=== PATIENT | male | born 1995 | race American Indian/Alaskan Native ===

== ENCOUNTER 2017-10-19 10:31 | Emergency (ER) | payer SELFPAY ==
--- NOTE | 2017-10-19 12:52 | XRay Report ---
ROUTINE CHEST, TWO VIEWS: HISTORY: Cough. The trachea, heart, mediastinal contour, lung huizar and bony thorax are unremarkable. IMPRESSION: Unremarkable chest x-ray.
[2017-10-19] MEDS ORDERED: DUONEB *Not for PRN Use IH ONE ×2 (16:03→16:41)
--- NOTE | 2017-10-19 16:33 | Emergency Department Report ---
- General Chief Complaint: Upper Respiratory Infection Stated Complaint: CHEST PAINS WHEN COUGHING Time Seen by Provider: 10/19/17 16:03 Source: patient Mode of arrival: Ambulatory Limitations: No Limitations - History of Present Illness Initial Comments: 22-year-old male past medical history smoker, asthma presents with complaint of 3-4 days of sore throat runny nose and persistent cough. Patient states that he has been wheezing persistently which is why he came to the ED. Has had coughing fits with slightly productive yellowish sputum. Patient is awake alert and oriented 3 no trismus and no drooling no dyspnea no audible wheezing. States he lives in a senior living with her have been several people with colds and flulike symptoms. Patient is awake alert and oriented 3 nontoxic appearing. Denies chest pain palpitations or shortness of breath at rest but does state he has been wheezing persistently. MD Complaint: cough, sore throat, rhinorrhea, nasal congestion Onset/Timin -: days(s) Severity: mild Consistency: constant Improves With: nothing Worsens With: nothing Associated Symptoms: cough Treatments Prior to Arrival: none - Related Data Previous Rx's Medication Instructions Recorded Last Taken Type Albuterol Sulfate [Ventolin Hfa] 1 gm IH Q4H PRN #1 hfa.aer.ad 10/19/17 Unknown Rx Azithromycin [Zithromax Z-DEBBIE] 250 mg PO QDAY #1 pack 10/19/17 Unknown Rx Benzonatate [Tessalon Perles] 100 mg PO Q8HR PRN #20 capsule 10/19/17 Unknown Rx Dextromethorphan/Benzocaine 1 each PO Q4H PRN #1 box 10/19/17 Unknown Rx [Cepacol Sorethroat-Cough Christal] Phenylephrine/Dm/Acetaminop/GG 10 ml PO Q6H PRN #1 liquid 10/19/17 Unknown Rx [Mucinex Qpww-Oxj-Exyzkkmiwx Lq] predniSONE [Deltasone] 40 mg PO QDAY #10 tab 10/19/17 Unknown Rx Allergies Allergy/AdvReac Type Severity Reaction Status Date / Time No Known Allergies Allergy Unverified 10/19/17 11:39 ED Review of Systems ROS: Stated complaint: CHEST PAINS WHEN COUGHING Other details as noted in HPI Constitutional: denies: chills, fever Eyes: denies: eye pain, eye discharge, vision change ENT: denies: ear pain, throat pain Respiratory: cough, wheezing. denies: shortness of breath Cardiovascular: denies: chest pain, palpitations Endocrine: no symptoms reported Gastrointestinal: denies: abdominal pain, nausea, diarrhea Genitourinary: denies: urgency, dysuria Musculoskeletal: denies: back pain, joint swelling, arthralgia Skin: denies: rash, lesions Neurological: denies: headache, weakness, paresthesias Psychiatric: denies: anxiety, depression Hematological/Lymphatic: denies: easy bleeding, easy bruising ED Past Medical Hx - Past Medical History Previous Medical History?: Yes Hx Asthma: Yes - Surgical History Past Surgical History?: No - Social History Smoking Status: Current Every Day Smoker Substance Use Type: Alcohol, Marijuana, Prescribed - Medications Home Medications: Home Medications Medication Instructions Recorded Confirmed Last Taken Type Albuterol Sulfate [Ventolin Hfa] 1 gm IH Q4H PRN #1 hfa.aer.ad 10/19/17 Unknown Rx Azithromycin [Zithromax Z-DEBBIE] 250 mg PO QDAY #1 pack 10/19/17 Unknown Rx Benzonatate [Tessalon Perles] 100 mg PO Q8HR PRN #20 capsule 10/19/17 Unknown Rx Dextromethorphan/Benzocaine 1 each PO Q4H PRN #1 box 10/19/17 Unknown Rx [Cepacol Sorethroat-Cough Christal] Phenylephrine/Dm/Acetaminop/GG 10 ml PO Q6H PRN #1 liquid 10/19/17 Unknown Rx [Mucinex Jllu-Oco-Ggldfopmim Lq] predniSONE [Deltasone] 40 mg PO QDAY #10 tab 10/19/17 Unknown Rx ED Physical Exam - General Limitations: No Limitations General appearance: alert, in no apparent distress - Head Head exam: Present: atraumatic, normocephalic - Eye Eye exam: Present: normal appearance, PERRL, EOMI - ENT ENT exam: Present: mucous membranes moist - Neck Neck exam: Present: normal inspection, full ROM - Respiratory Respiratory exam: Present: normal lung sounds bilaterally. Absent: respiratory distress - Cardiovascular Cardiovascular Exam: Present: regular rate, normal rhythm. Absent: systolic murmur, diastolic murmur, rubs, gallop - GI/Abdominal GI/Abdominal exam: Present: soft, normal bowel sounds - Rectal Rectal exam: Present: deferred - Extremities Exam Extremities exam: Present: normal inspection - Back Exam Back exam: Present: normal inspection - Neurological Exam Neurological exam: Present: alert, oriented X3 - Psychiatric Psychiatric exam: Present: normal affect, normal mood - Skin Skin exam: Present: warm, dry, intact, normal color. Absent: rash ED Course Vital Signs 10/19/17 10/19/17 11:36 17:58 Temperature 98.6 F 98.4 F Pulse Rate 68 82 Respiratory 18 18 Rate Blood Pressure 137/72 Blood Pressure 123/72 [Left] O2 Sat by Pulse 100 100 Oximetry ED Medical Decision Making - Medical Decision Making A/P: Asthma exacerbation, reactive airway disease, flulike illness 1- refill on albuterol inhaler, Mucinex, Tessalon Perles, throat lozenges, as patient has heavy smoker will cover him empirically with azithromycin. Short course prednisone 2- I discussed with the patient benefits and risks and side effects of taking Tamiflu . Although flu swab is negative, pt clinically may have flu based on symptoms. Patient is tolerating fluid and food without difficulty. States he feels significantly better from wheezing. Patient elects to not take Tamiflu at this time. I specifically advised patient to return to the ED for any worsening shortness of breath fevers chills nausea lethargy inability to tolerate by mouth or chest pain. Patient stated he would return if needed. 3- normal vital signs, patient does not have any audible wheezing or stridor or retractions before discharge. 4- vital signs stable for discharge. Patient to follow up with primary care doctor or [facility] Critical care attestation.: If time is entered above; I have spent that time in minutes in the direct care of this critically ill patient, excluding procedure time. ED Disposition Clinical Impression: Flu-like symptoms Asthma Qualifiers: Asthma severity: mild Asthma persistence: intermittent Asthma complication type : with acute exacerbation Qualified Code(s): J45.21 - Mild intermittent asthma with (acute) exacerbation Disposition: - TO HOME OR SELFCARE Is pt being admited?: No Does the pt Need Aspirin: No Condition: Stable Instructions: Asthma (ED), Influenza (ED), Viral Syndrome (ED) Prescriptions: Albuterol Sulfate [Ventolin Hfa] 1 gm IH Q4H PRN #1 hfa.aer.ad PRN Reason: Wheezing Azithromycin [Zithromax Z-DEBBIE] 250 mg PO QDAY #1 pack Benzonatate [Tessalon Perles] 100 mg PO Q8HR PRN #20 capsule PRN Reason: Cough Dextromethorphan/Benzocaine [Cepacol Sorethroat-Cough Christal] 1 each PO Q4H PRN #1 box PRN Reason: Cough Phenylephrine/Dm/Acetaminop/GG [Mucinex Tmhe-Auk-Hsfrheyfpw Lq] 10 ml PO Q6H PRN #1 liquid PRN Reason: Cough predniSONE [Deltasone] 40 mg PO QDAY #10 tab Referrals: [facility] [Outside] - 3-5 Days [facility] [Outside] - 3-5 Days ARMAAN DE LUNA MD [Staff Physician] - 3-5 Days Forms: Accompanied Note, Work/School Release Form(ED) Time of Disposition: 18:01
[2017-10-19] MEDS ORDERED: DELTASONE PO ONE (16:43)
[2017-10-19 17:58] VITALS: BP 123/72
== END 2017-10-19 18:19 | disposition home or self-care (01) ==
LOC: ED 10:31
DX: J45.21 Mild intermittent asthma with (acute) exacerbation (principal); F17.200 Nicotine dependence, unspecified, uncomplicated; F12.10 Cannabis abuse, uncomplicated
CPT/HCPCS: 71046; 87400; 94640; 99283; J7512